=== PATIENT | female | born 1985 | race Two or more races ===

== ENCOUNTER 2020-10-03 08:00 | Emergency (ER) | payer MEDICAID, OTHER ==
[~2020-10-03] VITALS: Ht 160 cm; Wt 70.3 kg
--- NOTE | 2020-10-03 08:15 | NUR ---
BIB PA FROM [facility] DUE TO PAIN IN SURGICAL WOUND AREA SINCE LAST NIGHT. PATIENT A/OX4, BREATHING EVEN AND UNLABORED, NO SOB NOTED. CHANGED INTO A GOWN, PROVIDED A BEDSIDE COMMODE FOR VOIDING.
[2020-10-03] MEDS ORDERED: ARIP5TAB10 PO (08:16)
[2020-10-03] MEDS ORDERED: GABA-532 PO (08:16)
[2020-10-03] MEDS ORDERED: ENOX40DI SQ (08:16)
[2020-10-03] MEDS ORDERED: SERT100T PO (08:16)
[2020-10-03] MEDS ORDERED: OXYC-128 PO (08:16)
--- NOTE | 2020-10-03 08:17 | NUR ---
DR. FIGUEREDO AT BEDSIDE FOR EVAL.
--- NOTE | 2020-10-03 08:56 | NUR ---
URINE SENT TO LAB
[2020-10-03 09:17] LABS: BASOPHILS % (AUTO) 0.5 % (0.0-2.0); EOSINOPHILS % (AUTO) 1.9 % (0.0-6.0); HEMATOCRIT 35 % (33-45); HEMOGLOBIN 11.5 g/dL (11.5-14.8); LYMPHOCYTES # (AUTO) 1.9 K/uL (0.8-4.8); LYMPHOCYTES % (AUTO) 26.8 % (20.0-44.0); MEAN CORPUSCULAR HGB CONC 33 g/dl (31.0-36.0); MEAN CORPUSCULAR VOLUME 93 fL (82-100); MONOCYTES # (AUTO) 0.6 K/uL (0.1-1.30); MONOCYTES % (AUTO) 8.4 % (2.0-12.0); NEUTROPHILS # (AUTO) 4.5 K/uL (1.8-8.9); NEUTROPHILS % (AUTO) 62.4 % (43.0-81.0); PLATELET COUNT (AUTO) 271 K/uL (150-450); RED BLOOD CELL COUNT(AUTO) 3.75 MIL/uL (4.0-5.2); WHITE BLOOD COUNT (AUTO) 7.2 K/uL (4.3-11.0)
[2020-10-03 09:20] LABS: CALCIUM, SERUM 8.6 mg/dL (8.5-10.1); CREATININE 0.7 mg/dL (0.6-1.3); POTASSIUM 3.9 mmol/L (3.5-5.1)
[2020-10-03] MEDS ORDERED: IV NS 0.9% 250 ML IV ONE (09:48)
[2020-10-03] MEDS ORDERED: CT SWABBABLE VALVE TRANS SET 1 EA INFUS.SET MC ONE (09:48)
[2020-10-03] MEDS ORDERED: IOHEXOL-300 100 ML VIAL IV ONE (09:48)
[2020-10-03 09:50] VITALS: BP 100/55
--- NOTE | 2020-10-03 10:03 | NUR ---
CAME BACK FROM CT.
--- NOTE | 2020-10-03 10:40 | NUR ---
TRANSPORT CALLED [facility] 45 MINS.
--- NOTE | 2020-10-03 11:05 | NUR ---
PATIENT A//OX3, Patient discharged to facility in stable condition. Written and verbal after care instructions given. Patient verbalizes understanding of instruction. IV removed. Catheter intact and site benign. Pressure and 4x4 applied to site. No bleeding noted. Copies of lab results and images given to [facility]IVET MACHINE OPERATOR.
--- NOTE | 2020-10-03 11:19 | NUR ---
REPORT GIVEN TO ROLAND MARCUS AT [facility].
== END 2020-10-03 11:26 ==
LOC: ER 08:05
DX: S80.11XA Contusion of right lower leg, initial encounter (principal); Z98.890 Other specified postprocedural states; Z60.2 Problems related to living alone; Z79.899 Other long term (current) drug therapy; X58.XXXA Exposure to other specified factors, initial encounter; Y93.89 Activity, other specified; Y92.89 Other specified places as the place of occurrence of the external cause; Y99.8 Other external cause status
CPT/HCPCS: 36415; 73701; 74177; 80048; 84703; 85025; 99285; J7050; Q9967